=== PATIENT | female | born 1950 | race Hispanic/Latino ===

== ENCOUNTER 2016-12-04 08:05 | Day surgery (SDC) | payer MEDICARE, BC ==
[2016-11-28 08:32] VITALS: BMI 22.2
[2016-12-04] MEDS ORDERED: Lactated Ringer's 1,000 ML IV SCH (08:35)
[2016-12-04] MEDS ORDERED: Propofol 10 mg/ml Inj (20 ML) ONE (08:58)
[2016-12-04 12:17] VITALS: BP 139/79; PULSE 71; RESP 19; TEMP 97.7; O2SAT 95
== END 2016-12-04 12:12 | disposition home or self-care (01) ==
LOC: ENDO 08:05
PROVIDERS: ATTEND Internal Medicine
DX: K92.1 Melena (principal); K29.70 Gastritis, unspecified, without bleeding; K44.9 Diaphragmatic hernia without obstruction or gangrene; K20.8 Other esophagitis; K64.8 Other hemorrhoids; K59.00 Constipation, unspecified
CPT/HCPCS: 43239; 45378; 88305; 88342; J2001; J2405; J2704; J3010; J7040; J7120

== ENCOUNTER 2017-03-05 07:16 | Day surgery (SDC) | payer MEDICARE, BC ==
[2017-02-27 10:36] VITALS: BMI 21.9
[2017-03-05] MEDS ORDERED: Propofol 10 mg/ml Inj (20 ML) ONE (08:28)
[2017-03-05] MEDS ORDERED: Sodium Chloride 0.9% 1,000 ML IV SCH (08:45)
[2017-03-05 08:50] VITALS: RESP 14; TEMP 98
[2017-03-05 08:59] VITALS: PULSE 61
[2017-03-05 09:14] VITALS: BP 146/86; O2SAT 97
== END 2017-03-05 10:17 | disposition home or self-care (01) ==
LOC: ENDO 07:16
PROVIDERS: ATTEND Internal Medicine
DX: K29.70 Gastritis, unspecified, without bleeding (principal); K44.9 Diaphragmatic hernia without obstruction or gangrene
CPT/HCPCS: 43235; J2001; J2704; J7040

== ENCOUNTER 2017-11-01 09:29 | Observation (INO) | payer MEDICARE, BC ==
[2017-11-01 09:45] VITALS: BMI 20.3
--- NOTE | 2017-11-01 09:47 | ED PDOC ---
Arrival/HPI - General Time Seen by Provider: 11/01/17 09:31 Historian: Patient - History of Present Illness Narrative History of Present Illness (Text): 11/01/17 09:40 67 year old female, whose PMH includes COPD and asthma, who presents to the emergency department complaining of shortness of breath and wheezing since 3 days ago. Patient reports being in basement at neighbors basement with 65 cats and believes it might has triggered the worsening of shortness of breath. She associated this symptom with subjective fever, chest tightness, and coughing with mild sputum. Patient notes using both her pump and nebulizer with no significant improvement. Patient denies dizziness, headache, nausea, vomiting, diarrhea, abdominal pain, dysuria, hematuria, or other complaints. PMD: Dr. Maldonado Time/Duration: < week Symptom Onset: Sudden Symptom Course: Worsening Activities at Onset: Rest Context: Home Past Medical History - Provider Review Nursing Documentation Reviewed: Yes - Infectious Disease Hx of Infectious Diseases: None - Tetanus Immunization Tetanus Immunization: Unknown - Cardiac Hx Pacemaker: No - Pulmonary Hx Asthma: Yes Hx Chronic Obstructive Pulmonary Disease (COPD): Yes - Neurological Hx Paralysis: No - Hematological/Oncological Hx Blood Transfusions: Yes (1996) Hx Blood Transfusion Reaction: No - Musculoskeletal/Rheumatological Hx Musculoskeletal Disorders: Yes - Genitourinary/Gynecological Other/Comment: ovarian tumor removed - Psychiatric Hx Emotional Abuse: No Hx Physical Abuse: No Hx Substance Use: Yes (ON SUBOXONE FOR OPIATE DEPENDENCY ) - Surgical History Hx Musculoskeletal Surgery: Yes (bilat hip replaced) - Anesthesia Hx Anesthesia Reactions: No Hx Malignant Hyperthermia: No - Suicidal Assessment Feels Threatened In Home Enviroment: No Family/Social History - Physician Review Nursing Documentation Reviewed: Yes Family/Social History: Unknown Family HX Smoking Status: Current Some Days Smoker Hx Alcohol Use: No Hx Substance Use: Yes (ON SUBOXONE FOR OPIATE DEPENDENCY ) Allergies/Home Meds Allergies/Adverse Reactions: Allergies Penicillins Allergy (Verified 11/01/17 09:43) ANGIOEDEMA HAZELNUTS Allergy (Uncoded 11/01/17 09:43) SWELLING molds Allergy (Uncoded 11/01/17 09:43) ANGIOEDEMA Home Medications: Home Meds Medication Instructions Recorded Confirmed Buprenorphine HCl/Naloxone HCl 1 ann SL BID 11/28/16 11/01/17 [Suboxone 8 mg-2 mg] Vitamin E [Vitamin E 400 Units Cap] 400 iu PO DAILY 11/28/16 11/01/17 Cholecalciferol 400 Intl Units 400 iu PO DAILY 12/04/16 11/01/17 [Vitamin D 400 Intl Units Tab] Gluc/Tam-MSM#1/C/Robe/Cesar/Bor 2 each PO DAILY 12/04/16 11/01/17 [Osteo Bi-Flex Caplet] Multivit-Min/Iron/Folic/Lutein 1 each PO DAILY 12/04/16 11/01/17 [Centrum Silver Women Tablet] Clonazepam [Klonopin] 1 tab PO BID 11/01/17 11/01/17 Quetiapine Fumarate [Seroquel] 50 mg PO BID 11/01/17 11/01/17 Ranitidine HCl [Zantac] 1 tab PO BID 11/01/17 11/01/17 Review of Systems - Review of Systems Constitutional: Fevers. absent: Fatigue ENT: absent: Sore Throat Respiratory: SOB, Cough, Sputum, Wheezing Cardiovascular: Other (chest tightness) Gastrointestinal: absent: Abdominal Pain, Vomiting Genitourinary Female: absent: Dysuria Musculoskeletal: absent: Back Pain Skin: absent: Rash Neurological: absent: Headache, Dizziness Endocrine: absent: Diaphoresis Physical Exam Vital Signs Reviewed: Yes Vital Signs Temp Pulse Pulse Resp BP Pulse Ox 11/01/17 13:03 98.7 F 82 82 17 106/68 11/01/17 11:35 80 16 106/68 94 L 11/01/17 09:59 26 H 11/01/17 09:41 98.3 F 11/01/17 09:36 98.3 F 85 22 101/85 91 L Temperature: Afebrile Blood Pressure: Normal Pulse: Regular Respiratory Rate: Normal Appearance: Positive for: Well-Appearing, Non-Toxic, Comfortable Pain Distress: None Mental Status: Positive for: Alert and Oriented X 3 - Systems Exam Head: Present: Atraumatic, Normocephalic Pupils: Present: PERRL Extroacular Muscles: Present: EOMI Conjunctiva: Present: Normal Mouth: Present: Moist Mucous Membranes Respiratory/Chest: Present: Wheezes (diffused wheezing ), Retracting (+1 retraction ). No: Clear to Auscultation, Good Air Exchange, Accessory Muscle Use, Rales Cardiovascular: Present: Regular Rate and Rhythm, Normal S1, S2. No: Murmurs Abdomen: Present: Normal Bowel Sounds. No: Tenderness, Distention, Peritoneal Signs, Rebound, Guarding Neurological: Present: GCS=15, CN II-XII Intact, Speech Normal Skin: Present: Warm, Dry, Normal Color. No: Rashes Psychiatric: Present: Alert, Oriented x 3, Normal Insight, Normal Concentration Medical Decision Making ED Course and Treatment: 11/01/17 Impression: 67 year old female with diffused wheezing and +1 retraction complaining of shortness of breath and wheezing since 3 days. Differential Diagnosis included but are not limited to: COPD exacerbation r/o PNA Plan: -- EKG -- Chest X-ray -- Labs -- Duoneb and Solumedrol -- Reassess and disposition Progress Notes: EKG: Ordered, reviewed, and independently interpreted the EKG. Rate : 80 BPM Rhythm : NSR Interpretation : No ST-segment elevations or depressions, no T-wave inversions, normal intervals. 11/01/17 10:35 Chest X-ray Impressions: No active disease 11/01/17 11:07 Patient continues to have wheezing and shortness of breathing but is improving. will reassess. 11/01/17 12:06 Patient continues to have symptoms. Discussed case with Dr. Henderson who will place the patient on her service. - Critical Care Critical Care Minutes: 30 minutes - Lab Interpretations Lab Results: 11/01/17 09:40 11/01/17 09:40 Lab Results 11/01/17 09:40: pO2 99 H, VBG pH 7.33, VBG pCO2 56.0, VBG HCO3 29.5 H, VBG Total CO2 31.2 H, VBG O2 Sat (Calc) 98.8 H, VBG Base Excess 2.3 H, VBG Potassium 4.0, Sodium 139.0, Chloride 105.0, Glucose 125 H, Lactate 1.0, FiO2 21.0, Venous Blood Potassium 4.0 11/01/17 09:40: Sodium 142, Chloride 104, Potassium 4.2, Carbon Dioxide 29, Anion Gap 14, BUN 18, Creatinine 0.7, Est GFR ( Amer) > 60, Est GFR (Non- Af Amer) > 60, Random Glucose 116 H, Calcium 9.7, Magnesium 1.8, Lactate Dehydrogenase 453, Total Creatine Kinase 61, Troponin I < 0.01, NT-Pro-B Natriuret Pep 123 11/01/17 09:40: WBC 5.9, RBC 4.61, Hgb 14.9, Hct 43.0, MCV 93.3, MCH 32.3, MCHC 34.7, RDW 13.4, Plt Count 183, MPV 10.0, Gran % 39.4 L, Lymph % (Auto) 41.6 H, Throckmorton % (Auto) 10.4 H, Eos % (Auto) 7.9 H, Baso % (Auto) 0.7, Gran # 2.34, Lymph # (Auto) 2.5, Throckmorton # (Auto) 0.6, Eos # (Auto) 0.5, Baso # (Auto) 0.04 I have reviewed the lab results: Yes - RAD Interpretation Radiology Orders: 11/01/17 09:46 CHEST PORTABLE [RAD] Stat Company Doctor: Radiologist - EKG Interpretation Interpreted by ED Physician: Yes Type: 12 lead EKG - Medication Orders Current Medication Orders: Discontinued Medications Albuterol Sulfate (Albuterol 0.083% Inhal Kallie (2.5 Mg/3 Ml) Ud) 2.5 mg IH STAT STA Stop: 11/01/17 12:06 Last Admin: 11/01/17 12:58 Dose: 2.5 mg Albuterol/Ipratropium (Duoneb 3 Mg/0.5 Mg (3 Ml) Ud) 3 ml IH Q15M SIVAKUMAR Stop: 11/01/17 10:31 Last Admin: 11/01/17 10:17 Dose: 3 ml Methylprednisolone (Solu-Medrol) 125 mg IVP STAT STA Stop: 11/01/17 09:46 Last Admin: 11/01/17 09:52 Dose: 125 mg IVP Administration Document 11/01/17 09:52 [facility] [place] (Rec: 11/01/17 09:52 [facility] [place] [id number]) Charges for Administration # of IVP Administrations 1 Pneumococcal Polyvalent Vaccine (Pneumovax 23 Vaccine) 0.5 ml IM .ONCE ONE Stop: 11/01/17 13:52 - Scribe Statement The provider has reviewed the documentation as recorded by the Marge Aguirre Provider Scribe Attestation: All medical record entries made by the Scribe were at my direction and personally dictated by me. I have reviewed the chart and agree that the record accurately reflects my personal performance of the history, physical exam, medical decision making, and the department course for this patient. I have also personally directed, reviewed, and agree with the discharge instructions and disposition. Disposition/Present on Arrival - Present on Arrival Any Indicators Present on Arrival: No History of DVT/PE: No History of Uncontrolled Diabetes: No Urinary Catheter: No History Surgical Site Infection Following: None - Disposition Have Diagnosis and Disposition been Completed?: Yes Diagnosis: COPD (chronic obstructive pulmonary disease) Disposition: HOSPITALIZED Disposition Time: 12:06 Patient Plan: Admission Condition: FAIR
[2017-11-01] MEDS: Albuterol-Ipratrop 3 mg / 0.5 (3 ml) UD IH SCH ×6 (09:52→23:41)
[2017-11-01 09:58] LABS: BASO # 0.04 K/mm3 (0.0-2.0); BASO % 0.7 % (0.0-3.0); EOS # 0.5 (0.0-0.7); EOS % 7.9 % (1.5-5.0); GRAN # 2.34 (1.4-6.5); GRAN % 39.4 % (50.0-68.0); HEMOGLOBIN 14.9 g/dL (12.0-16.0); LYMPH # 2.5 (1.2-3.4); LYMPH % 41.6 % (22.0-35.0); MEAN CELL VOLUME 93.3 fl (80.0-105.0); MEAN CORPUSCULAR HEMOGLOBIN 32.3 pg (25.0-35.0); MEAN CORPUSCULAR HGB CONC 34.7 g/dl (31.0-37.0); MONO # 0.6 (0.1-0.6); MONO % 10.4 % (1.0-6.0); RBC 4.61 10^6/uL (3.5-6.1); RED CELL DISTRIBUTION WIDTH 13.4 % (11.5-14.5); WHITE BLOOD COUNT 5.9 10^3/ul (4.5-11.0)
[2017-11-01 10:04] LABS: VENOUS BLOOD GAS BASE EXCESS 2.3 mmol/L (0.0-2.0); VENOUS BLOOD GAS PO2 99 mm/Hg (30-55); VENOUS BLOOD PH 7.33 (7.32-7.43)
[2017-11-01 10:08] LABS: BLOOD UREA NITROGEN 18 mg/dL (7-21); CALCIUM 9.7 mg/dL (8.4-10.5); GFR AFRICAN-AMERICAN > 60; GFR NON-AFRICAN AMERICAN > 60
[2017-11-01 10:20] LABS: B-TYPE NATRIURETIC PEPTIDE 123 pg/mL (0-450); TROPONIN I < 0.01 ng/mL
--- NOTE | 2017-11-01 10:30 | RAD ---
Date of service: 11/01/2017 HISTORY: copd r/o pna COMPARISON: No prior. FINDINGS: LUNGS: No active pulmonary disease. PLEURA: No significant pleural effusion identified, no pneumothorax apparent. CARDIOVASCULAR: Normal. OSSEOUS STRUCTURES: No significant abnormalities. VISUALIZED UPPER ABDOMEN: Normal. OTHER FINDINGS: None. IMPRESSION: No active disease.
[2017-11-01] MEDS ORDERED: Albuterol 0.083% Inhal Sol (2.5 mg/3 mL) UD IH STA (12:05)
[2017-11-01] MEDS ORDERED: Pneumococcal 23-Valent Vaccine IM ONE (13:51)
[2017-11-01] MEDS ORDERED: Albuterol-Ipratrop 3 mg / 0.5 (3 ml) UD IH PRN (14:07)
[2017-11-01 14:08] VITALS: RESP 18
--- NOTE | 2017-11-01 15:27 | CP.PCM.HP ---
<Ruperto Sadler - Last Filed: 11/01/17 15:19> History of Present Illness - History of Present Illness History of Present Illness: Ruperto SadlerDO PGY-1, [employer] History and Physical 67 y o female PMhx COPD/asthma, former smoker, b/l hip replacement, opioid dependence on suboxone, presents to ED with worsening shortness of breath x 3 days. Pt states she went downstairs into basement of her landlord who has 65 cats. States that the room smelled like urine, started walking back up the stairs, got winded, and states her breathing has not been the same since. States her last hospitalization for COPD was many years ago, states she is not on home oxygen, and has never been intubated in the past. Denies sick contacts or recent travel. States she takes albuterol as needed once every 2 weeks typically for her COPD, but states that she has had to use the medication more frequently over the past several days. Also admits to productive cough with clear/yellow sputum, tearing eyes, and nasal congestion, but denies sore throat or ear pain. Denies fever, chills, chest pain, n/v/d/c, abd pain, urinary complaints, or other symptoms. Pt states she has also had decreased appetite for the past several days. PMhx: COPD/asthma, opioid dependence, erosive esophagitis (last EGD in Nov 2016 , colonoscopy wnl in Feb 2018) PSurgHx: removal of ovarian tumor, b/l hip replacement (1996, 2001) Allergies: Penicillin, mold, hazelnuts (pt gets angioedema with all 3 allergens) Meds: Zantac bid, Seroquel 50 mg bid (as needed when pt has insomnia), MVT, Osteo Bi-Flex capsule, Vit D 400 U daily, Clonazepam 1 mg bid, Suboxone 8 mg-2 mg Fam hx: reviewed and not pertinent Soc Hx: former smoker 1 ppd (quit 2 y ago), former opioid dependence due to b/l hip pain (on suboxone), denies alcohol, IVDA, or other illegal drug use 12-point ROS otherwise neg except for HPI PMD: Dr. Friend Cardio: Dr. Garcia Psych: Dr. Patricia Chase Present on Admission - Present on Admission Any Indicators Present on Admission: No Review of Systems - Constitutional Constitutional: As Per HPI - Cardiovascular Cardiovascular: absent: As Per HPI, Acrocyanosis, Chest Pain, Chest Pain at Rest , Chest Pain with Activity, Claudication, Diaphoresis, Dyspnea, Dyspnea on Exertion, Edema, Irregular Heart Rhythm, Pain Radiating to Arm/Neck/Jaw, Leg Edema, Leg Ulcers, Lightheadedness, Orthopnea, Palpitations, Paroxysmal Nocturnal Dyspnea, Pedal Edema, Radiating Pain, Rapid Heart Rate, Slow Heart Rate, Syncope, Other - Respiratory Respiratory: As Per HPI - Gastrointestinal Gastrointestinal: absent: As Per HPI, Abdominal Pain, Belching, Bloating, Change in Bowel Habits, Change in Stool Character, Coffee Ground Emesis, Constipation, Cramping, Diarrhea, Dyspepsia, Dysphagia, Early Satiety, Excessive Flatus, Fecal Incontinence, Heartburn, Hematemesis, Hematochezia, Loose Stools, Melena, Nausea, Odynophagia, Temesmus, Vomiting, Other - Musculoskeletal Musculoskeletal: absent: As Per HPI, Abnormal Gait, Arthralgias, Atrophy, Back Pain, Deformity, Joint Swelling, Limited Range of Motion, Loss of Height, Muscle Cramps, Muscle Weakness, Myalgias, Neck Pain, Numbness, Radiating Pain into Limb, Stiffness, Tingling, Other Past Patient History - Infectious Disease Hx of Infectious Diseases: None - Tetanus Immunizations Tetanus Immunization: Unknown - Past Social History Smoking Status: Current Some Days Smoker - CARDIAC Hx Pacemaker: No - PULMONARY Hx Asthma: Yes Hx Chronic Obstructive Pulmonary Disease (COPD): Yes - NEUROLOGICAL Hx Paralysis: No - HEENT Hx HEENT Problems: Yes (eyeglassees) - RENAL Hx Chronic Kidney Disease: No - ENDOCRINE/METABOLIC Hx Endocrine Disorders: No - HEMATOLOGICAL/ONCOLOGICAL Hx Blood Transfusions: Yes (1996) Hx Blood Transfusion Reaction: No - INTEGUMENTARY Hx Dermatological Problems: Yes Other/Comment: left foot toes 2 3 4 5 hammertoes, thick dry nails, slight red dry skin to left heel, bunyon left foot, scratchmarks from "cats" to lle, rle small scratchmarks from cats, thick toenails, dry cark skin to right heel, scratch bueno knees, swelling to knees left more than right, multiple moles to back - MUSCULOSKELETAL/RHEUMATOLOGICAL Hx Musculoskeletal Disorders: Yes - GASTROINTESTINAL Hx Gastrointestinal Disorders: Yes (esophagitis erosions) - GENITOURINARY/GYNECOLOGICAL Other/Comment: ovarian tumor removed - PSYCHIATRIC Hx Emotional Abuse: No Hx Physical Abuse: No Hx Substance Use: Yes (ON SUBOXONE FOR OPIATE DEPENDENCY ) - SURGICAL HISTORY Hx Musculoskeletal Surgery: Yes (bilat hip replaced) - ANESTHESIA Hx Anesthesia Reactions: No Hx Malignant Hyperthermia: No Meds Allergies/Adverse Reactions: Allergies Allergy/AdvReac Type Severity Reaction Status Date / Time Penicillins Allergy ANGIOEDEMA Verified 11/01/17 09:43 HAZELNUTS Allergy SWELLING Uncoded 11/01/17 09:43 molds Allergy ANGIOEDEMA Uncoded 11/01/17 09:43 Physical Exam - Constitutional Appears: Well, Non-toxic, No Acute Distress - Head Exam Head Exam: ATRAUMATIC, NORMAL INSPECTION, NORMOCEPHALIC - Eye Exam Eye Exam: EOMI, Normal appearance, PERRL - ENT Exam ENT Exam: Mucous Membranes Moist, Normal Oropharynx - Neck Exam Neck exam: Positive for: Full Rom, Normal Inspection - Respiratory Exam Respiratory Exam: Rhonchi, Wheezes Additional comments: Diffuse wheezes/rhonchi auscultated in all lung hernandez - Cardiovascular Exam Cardiovascular Exam: REGULAR RHYTHM Additional comments: Holosystolic murmur auscultated - GI/Abdominal Exam GI & Abdominal Exam: Normal Bowel Sounds, Soft - Extremities Exam Extremities exam: Positive for: full ROM, normal inspection, pedal pulses present - Neurological Exam Neurological exam: Alert, CN II-XII Intact, Normal Gait, Oriented x3, Reflexes Normal - Psychiatric Exam Psychiatric exam: Normal Affect, Normal Mood - Skin Skin Exam: Dry, Intact, Normal Color, Warm Results - Vital Signs Recent Vital Signs: Last Vital Signs Temp 98.7 F 11/01/17 13:03 Pulse 82 11/01/17 14:07 Resp 18 11/01/17 14:07 BP 105/69 11/01/17 14:07 Pulse Ox 95 11/01/17 14:07 - Labs Result Diagrams: 11/01/17 09:40 11/01/17 09:40 Assessment & Plan - Assessment and Plan (Free Text) Assessment: 67 y o female PMhx COPD/asthma, former smoker, b/l hip replacement, opioid dependence on suboxone, presents to ED with worsening shortness of breath x 3 days. Pt being treated for COPD exacerbation. Plan: COPD Exacerbation -S/p solumedrol and duonebs x3 in ED with improvement -CXR: neg for consolidation -Duonebs q 4, adjust as needed -Prednisone 40 mg daily (to be started tomorrow) -Levaquin 750 mg IVPB daily -Continue to trend O2 sats, pt at 95% s/p tx in ED -F/u labs Hx opioid dependence on suboxone 20 mg methadone stat, will re-evaluate as needed Hx unspecified mood disorder C/w home meds Klonipin, Seroquel Pt seen, examined with, and plan d/w Dr. Graf, attending. Ruperto Sadler DO PGY-1, [employer] Pager #[phone] <Radha Graf - Last Filed: 11/02/17 10:52> Results - Vital Signs Recent Vital Signs: Last Vital Signs Temp 98.3 F 11/02/17 06:00 Pulse 58 L 11/02/17 06:00 Resp 18 11/02/17 06:00 BP 124/78 11/02/17 06:00 Pulse Ox 96 11/02/17 06:00 - Labs Result Diagrams: 11/02/17 06:30 11/02/17 06:30 Labs: Laboratory Results - last 24 hr 11/02/17 11/02/17 06:30 06:30 WBC 9.1 D RBC 4.08 Hgb 13.2 Hct 37.8 MCV 92.6 MCH 32.4 MCHC 34.9 RDW 13.2 Plt Count 170 MPV 10.1 Gran % 75.7 H Lymph % (Auto) 13.1 L Starr % (Auto) 10.8 H Eos % (Auto) 0.3 L Baso % (Auto) 0.1 Gran # 6.84 H Lymph # (Auto) 1.2 Starr # (Auto) 1.0 H Eos # (Auto) 0.0 Baso # (Auto) 0.01 Sodium 138 Potassium 4.5 Chloride 104 Carbon Dioxide 27 Anion Gap 12 BUN 24 H Creatinine 0.7 Est GFR ( Amer) > 60 Est GFR (Non-Af Amer) > 60 Random Glucose 107 Calcium 9.7 Total Bilirubin 0.6 AST 30 ALT 29 Alkaline Phosphatase 69 Total Protein 6.7 Albumin 3.7 Globulin 3.0 Albumin/Globulin Ratio 1.2 Attending/Attestation - Attestation I have personally seen and examined this patient.: Yes I have fully participated in the care of the patient.: Yes I have reviewed all pertinent clinical information: Yes Notes (Text): 11/02/17 10:48 Medical record note made by the resident after discussion with my direction and input after the patient was personally seen and examined by me. I have reviewed the chart and agree that the record accurately reflects by personal performance of the history, physical exam, data review, and medical decision-making, in the course for the patient. I have also personally directed the plan of care. 67 yrs old female with PMH of COPD, Aortic stenosis, drug abuse on Suboxone iis admitted with COPD exacerbation. Continue Neb/Steroid and antibiotics. DVT prophylaxis with lovenox. Management plan was discussed in detail with patient. Education was provided.
[2017-11-01] MEDS: levoFLOXacin 750 mg in D5W 750 MG/150 ML BAG IVPB SCH (16:18)
[2017-11-01] MEDS: Enoxaparin 40 mg Syringe SC SCH (16:18)
--- NOTE | 2017-11-01 17:34 | CARD ---
APPROVED REPORT Date of service: 11/01/2017 EKG Measurement Heart [id number] <Conclusion> Poor data quality, interpretation may be adversely affected Sinus rhythm with fusion complexes Minimal voltage criteria for LVH, may be normal variant Borderline ECG
[2017-11-02] MEDS: Albuterol-Ipratrop 3 mg / 0.5 (3 ml) UD IH SCH ×3 (03:34→11:08)
[2017-11-02] MEDS ORDERED: Pantoprazole 40 mg EC Tab PO SCH (06:00)
[2017-11-02 06:46] LABS: BASO # 0.01 K/mm3 (0.0-2.0); BASO % 0.1 % (0.0-3.0); EOS % 0.3 % (1.5-5.0); GRAN # 6.84 (1.4-6.5); GRAN % 75.7 % (50.0-68.0); HEMOGLOBIN 13.2 g/dL (12.0-16.0); LYMPH # 1.2 (1.2-3.4); LYMPH % 13.1 % (22.0-35.0); MEAN CELL VOLUME 92.6 fl (80.0-105.0); MEAN CORPUSCULAR HEMOGLOBIN 32.4 pg (25.0-35.0); MEAN CORPUSCULAR HGB CONC 34.9 g/dl (31.0-37.0); MEAN PLATELET VOLUME 10.1 fl (7.0-11.0); MONO % 10.8 % (1.0-6.0); RBC 4.08 10^6/uL (3.5-6.1); RED CELL DISTRIBUTION WIDTH 13.2 % (11.5-14.5); WHITE BLOOD COUNT 9.1 10^3/ul (4.5-11.0)
[2017-11-02 07:25] LABS: ALB/GLOB RATIO 1.2 (1.1-1.8); ALBUMIN 3.7 g/dL (3.0-4.8); ALT/SGPT 29 U/L (7-56); AST/SGOT 30 U/L (14-36); BLOOD UREA NITROGEN 24 mg/dL (7-21); CALCIUM 9.7 mg/dL (8.4-10.5); GFR AFRICAN-AMERICAN > 60; GFR NON-AFRICAN AMERICAN > 60
[2017-11-02 09:04] VITALS: BP 124/78; PULSE 58; TEMP 98.3; O2SAT 96
[2017-11-02] MEDS: Enoxaparin 40 mg Syringe SC SCH (09:21)
[2017-11-02] MEDS: levoFLOXacin 750 mg in D5W 750 MG/150 ML BAG IVPB SCH (09:21)
--- NOTE | 2017-11-02 10:34 | CP.PCM.DIS ---
<Dontrell Freemanant - Last Filed: 11/02/17 10:28> Provider - Provider Date of Admission: 11/01/17 12:06 Attending physician: Faby Henderson MD Primary care physician: Irene Roth MD Time Spent in preparation of Discharge (in minutes): 40 Diagnosis - Discharge Diagnosis (1) COPD (chronic obstructive pulmonary disease) Status: Acute Priority: High (2) Opioid dependence Status: Chronic Priority: Medium (3) Mood disorder Status: Chronic Priority: Medium Hospital Course - Lab Results Lab Results: Most Recent Lab Values WBC 9.1 10^3/ul (4.5-11.0) D 11/02/17 06:30 RBC 4.08 10^6/uL (3.5-6.1) 11/02/17 06:30 Hgb 13.2 g/dL (12.0-16.0) 11/02/17 06:30 Hct 37.8 % (36.0-48.0) 11/02/17 06:30 MCV 92.6 fl (80.0-105.0) 11/02/17 06:30 MCH 32.4 pg (25.0-35.0) 11/02/17 06:30 MCHC 34.9 g/dl (31.0-37.0) 11/02/17 06:30 RDW 13.2 % (11.5-14.5) 11/02/17 06:30 Plt Count 170 10^3/uL (120.0-450.0) 11/02/17 06:30 MPV 10.1 fl (7.0-11.0) 11/02/17 06:30 Gran % 75.7 % (50.0-68.0) H 11/02/17 06:30 Lymph % (Auto) 13.1 % (22.0-35.0) L 11/02/17 06:30 Leon % (Auto) 10.8 % (1.0-6.0) H 11/02/17 06:30 Eos % (Auto) 0.3 % (1.5-5.0) L 11/02/17 06:30 Baso % (Auto) 0.1 % (0.0-3.0) 11/02/17 06:30 Gran # 6.84 (1.4-6.5) H 11/02/17 06:30 Lymph # (Auto) 1.2 (1.2-3.4) 11/02/17 06:30 Leon # (Auto) 1.0 (0.1-0.6) H 11/02/17 06:30 Eos # (Auto) 0.0 (0.0-0.7) 11/02/17 06:30 Baso # (Auto) 0.01 K/mm3 (0.0-2.0) 11/02/17 06:30 pO2 99 mm/Hg (30-55) H 11/01/17 09:40 VBG pH 7.33 (7.32-7.43) 11/01/17 09:40 VBG pCO2 56.0 (40-60) 11/01/17 09:40 VBG HCO3 29.5 mmol/l (21-28) H 11/01/17 09:40 VBG Total CO2 31.2 mmol.L (22-28) H 11/01/17 09:40 VBG O2 Sat (Calc) 98.8 % (40-65) H 11/01/17 09:40 VBG Base Excess 2.3 mmol/L (0.0-2.0) H 11/01/17 09:40 VBG Potassium 4.0 mmol/L (3.6-5.2) 11/01/17 09:40 Sodium 139.0 mmol/L (132-148) 11/01/17 09:40 Chloride 105.0 mmol/L (98-107) 11/01/17 09:40 Glucose 125 mg/dl (65-105) H 11/01/17 09:40 Lactate 1.0 mmol/L (0.7-2.1) 11/01/17 09:40 FiO2 21.0 % 11/01/17 09:40 Sodium 138 mmol/L (132-148) 11/02/17 06:30 Potassium 4.5 mmol/L (3.6-5.0) 11/02/17 06:30 Chloride 104 mmol/L (98-107) 11/02/17 06:30 Carbon Dioxide 27 mmol/L (21-33) 11/02/17 06:30 Anion Gap 12 (10-20) 11/02/17 06:30 BUN 24 mg/dL (7-21) H 11/02/17 06:30 Creatinine 0.7 mg/dl (0.7-1.2) 11/02/17 06:30 Est GFR ( Amer) > 60 11/02/17 06:30 Est GFR (Non-Af Amer) > 60 11/02/17 06:30 Random Glucose 107 mg/dL (70-110) 11/02/17 06:30 Calcium 9.7 mg/dL (8.4-10.5) 11/02/17 06:30 Magnesium 1.8 mg/dL (1.7-2.2) 11/01/17 09:40 Total Bilirubin 0.6 mg/dL (0.2-1.3) 11/02/17 06:30 AST 30 U/L (14-36) 11/02/17 06:30 ALT 29 U/L (7-56) 11/02/17 06:30 Alkaline Phosphatase 69 U/L (38-126) 11/02/17 06:30 Lactate Dehydrogenase 453 U/L (333-699) 11/01/17 09:40 Total Creatine Kinase 61 U/L (35-230) 11/01/17 09:40 Troponin I < 0.01 ng/mL 11/01/17 09:40 NT-Pro-B Natriuret Pep 123 pg/mL (0-450) 11/01/17 09:40 Total Protein 6.7 g/dL (5.8-8.3) 11/02/17 06:30 Albumin 3.7 g/dL (3.0-4.8) 11/02/17 06:30 Globulin 3.0 gm/dL 11/02/17 06:30 Albumin/Globulin Ratio 1.2 (1.1-1.8) 11/02/17 06:30 Venous Blood Potassium 4.0 mmol/L (3.6-5.2) 11/01/17 09:40 - Hospital Course Hospital Course: Ben Freeman DO - PGY1 [facility] - Hospital Discharge Note 67 F w/ PMH COPD/Asthma, Former smoker, BL hip replacement, opiod dependance on suboxone, presents to Ed w/ worsening SOB x3 days. Last COPD hospitalization >1 year ago, not on home O2, never intubated. typically uses albuterol nebulized Q2 weeks for COPD sx however days prior to admission pt has had an increase in frequency of use. ROS on admission was only significant for shortness of breath , wheezing, and decreased appetite. Denied any other complaint at time of admission. In the ED, CXR performed was negative for any active airway disease; EKG was read as sinus rhythm w/ fusion complexes, and minimal voltage criteria for LVH. Pt. started on Duonebs and solumedrol. Subsequently, she was admitted to inpatient for COPD exacerbation. Pt. was treated w/ Duoneb Q4, Levofloxacin 750 , and prednisone. This morning, she was seen at bedside. Patient has decreased complaints of SOB and wheezing; only complaining of poor night sleep due to home seroquel not being restarted. Otherwise, the patient appears to be tolerating well. The following discharge instructions were verbalized to the patient, and she agrees with the discharge plan: 1. Follow up with your primary care doctor; Dr. Roth within 10 days. 2. Please continue taking your nebulized albuterol at home every 4 hours as needed; If you are not home you may use your albuterol rescue inhaler. 3. Start taking prednisone daily as prescribed 4. Start taking levaquin daily as prescribed 5. Please return to nearest emergency department should symptoms worsen Patient is stable for discharge to home at this time. - Date & Time of H&P Date of H&P: 11/01/17 Time of H&P: 15:19 Discharge Exam - Head Exam Head Exam: ATRAUMATIC, NORMAL INSPECTION, NORMOCEPHALIC - Eye Exam Eye Exam: EOMI, Normal appearance, PERRL. absent: Scleral icterus - ENT Exam ENT Exam: Mucous Membranes Moist, Normal Exam, Normal Oropharynx - Neck Exam Neck exam: Full Rom, Normal Inspection - Respiratory Exam Respiratory Exam: Rhonchi, Wheezes - Cardiovascular Exam Cardiovascular Exam: REGULAR RHYTHM, +S1, Systolic Murmur - GI/Abdominal Exam GI & Abdominal Exam: Normal Bowel Sounds, Soft. absent: Tenderness - Extremities Exam Extremities exam: pedal pulses present - Neurological Exam Neurological exam: Alert, CN II-XII Intact, Oriented x3 - Psychiatric Exam Psychiatric exam: Normal Affect, Normal Mood - Skin Skin Exam: Dry, Intact, Warm Discharge Plan - Discharge Medications Prescriptions: Albuterol HFA [Ventolin HFA 90 mcg/actuation (8 g)] 2 puff IH [id number] PRN #1 puff PRN Reason: Shortness Of Breath Levofloxacin [Levaquin] 500 mg PO DAILY #5 tablet predniSONE [predniSONE Tab] 40 mg PO DAILY 4 Days tab - Follow Up Plan Condition: FAIR Disposition: HOME/ ROUTINE Instructions: Chronic Obstructive Pulmonary Disease (COPD), Including Emphysema , Inhalers, Steroid Medicines, Medicines for Chronic Obstructive Pulmonary Disease (COPD), Polysubstance Abuse (DC) Additional Instructions: 1. Follow up with your primary care doctor; Dr. Roth within 10 days. 2. Please continue taking your nebulized albuterol at home every 4 hours as needed; If you are not home you may use your albuterol rescue inhaler. 3. Start taking prednisone daily as prescribed 4. Start taking levaquin daily as prescribed 5. Please return to nearest emergency department should symptoms worsen Referrals: Irene Dobbs MD [Primary Care Provider] - <Radha Graf - Last Filed: 11/03/17 13:43> Provider - Provider Date of Admission: 11/01/17 12:06 Attending physician: Faby Henderson MD Primary care physician: Irene Roth MD Hospital Course - Lab Results Lab Results: Most Recent Lab Values WBC 9.1 10^3/ul (4.5-11.0) D 11/02/17 06:30 RBC 4.08 10^6/uL (3.5-6.1) 11/02/17 06:30 Hgb 13.2 g/dL (12.0-16.0) 11/02/17 06:30 Hct 37.8 % (36.0-48.0) 11/02/17 06:30 MCV 92.6 fl (80.0-105.0) 11/02/17 06:30 MCH 32.4 pg (25.0-35.0) 11/02/17 06:30 MCHC 34.9 g/dl (31.0-37.0) 11/02/17 06:30 RDW 13.2 % (11.5-14.5) 11/02/17 06:30 Plt Count 170 10^3/uL (120.0-450.0) 11/02/17 06:30 MPV 10.1 fl (7.0-11.0) 11/02/17 06:30 Gran % 75.7 % (50.0-68.0) H 11/02/17 06:30 Lymph % (Auto) 13.1 % (22.0-35.0) L 11/02/17 06:30 Leon % (Auto) 10.8 % (1.0-6.0) H 11/02/17 06:30 Eos % (Auto) 0.3 % (1.5-5.0) L 11/02/17 06:30 Baso % (Auto) 0.1 % (0.0-3.0) 11/02/17 06:30 Gran # 6.84 (1.4-6.5) H 11/02/17 06:30 Lymph # (Auto) 1.2 (1.2-3.4) 11/02/17 06:30 Leon # (Auto) 1.0 (0.1-0.6) H 11/02/17 06:30 Eos # (Auto) 0.0 (0.0-0.7) 11/02/17 06:30 Baso # (Auto) 0.01 K/mm3 (0.0-2.0) 11/02/17 06:30 pO2 99 mm/Hg (30-55) H 11/01/17 09:40 VBG pH 7.33 (7.32-7.43) 11/01/17 09:40 VBG pCO2 56.0 (40-60) 11/01/17 09:40 VBG HCO3 29.5 mmol/l (21-28) H 11/01/17 09:40 VBG Total CO2 31.2 mmol.L (22-28) H 11/01/17 09:40 VBG O2 Sat (Calc) 98.8 % (40-65) H 11/01/17 09:40 VBG Base Excess 2.3 mmol/L (0.0-2.0) H 11/01/17 09:40 VBG Potassium 4.0 mmol/L (3.6-5.2) 11/01/17 09:40 Sodium 139.0 mmol/L (132-148) 11/01/17 09:40 Chloride 105.0 mmol/L (98-107) 11/01/17 09:40 Glucose 125 mg/dl (65-105) H 11/01/17 09:40 Lactate 1.0 mmol/L (0.7-2.1) 11/01/17 09:40 FiO2 21.0 % 11/01/17 09:40 Sodium 138 mmol/L (132-148) 11/02/17 06:30 Potassium 4.5 mmol/L (3.6-5.0) 11/02/17 06:30 Chloride 104 mmol/L (98-107) 11/02/17 06:30 Carbon Dioxide 27 mmol/L (21-33) 11/02/17 06:30 Anion Gap 12 (10-20) 11/02/17 06:30 BUN 24 mg/dL (7-21) H 11/02/17 06:30 Creatinine 0.7 mg/dl (0.7-1.2) 11/02/17 06:30 Est GFR ( Amer) > 60 11/02/17 06:30 Est GFR (Non-Af Amer) > 60 11/02/17 06:30 Random Glucose 107 mg/dL (70-110) 11/02/17 06:30 Calcium 9.7 mg/dL (8.4-10.5) 11/02/17 06:30 Magnesium 1.8 mg/dL (1.7-2.2) 11/01/17 09:40 Total Bilirubin 0.6 mg/dL (0.2-1.3) 11/02/17 06:30 AST 30 U/L (14-36) 11/02/17 06:30 ALT 29 U/L (7-56) 11/02/17 06:30 Alkaline Phosphatase 69 U/L (38-126) 11/02/17 06:30 Lactate Dehydrogenase 453 U/L (333-699) 11/01/17 09:40 Total Creatine Kinase 61 U/L (35-230) 11/01/17 09:40 Troponin I < 0.01 ng/mL 11/01/17 09:40 NT-Pro-B Natriuret Pep 123 pg/mL (0-450) 11/01/17 09:40 Total Protein 6.7 g/dL (5.8-8.3) 11/02/17 06:30 Albumin 3.7 g/dL (3.0-4.8) 11/02/17 06:30 Globulin 3.0 gm/dL 11/02/17 06:30 Albumin/Globulin Ratio 1.2 (1.1-1.8) 11/02/17 06:30 Venous Blood Potassium 4.0 mmol/L (3.6-5.2) 11/01/17 09:40 Attending/Attestation - Attestation I have personally seen and examined this patient.: Yes I have fully participated in the care of the patient.: Yes I have reviewed all pertinent clinical information, including history, physical exam and plan: Yes Notes (Text): 11/03/17 13:42 Medical record note made by the resident after discussion with my direction and input after the patient was personally seen and examined by me. I have reviewed the chart and agree that the record accurately reflects by personal performance of the history, physical exam, data review, and medical decision-making, in the course for the patient. I have also personally directed the plan of care. 67 yrs old female with PMH of COPD, Aortic stenosis, drug abuse on Suboxone was admitted with COPD exacerbation. Improved Neb/Steroid and antibiotics. Patient is on room air, wheezing and dyspnea has improved. Patient will be discharged home and will follow up with PCP. Management plan was discussed in detail with patient. Education was provided.
== END 2017-11-02 15:37 | disposition home or self-care (01) ==
LOC: ED 09:29 → ERH 12:06 → 5RNO 14:23
PROVIDERS: ADMIT Internal Medicine; ATTEND Internal Medicine
DX: J44.1 Chronic obstructive pulmonary disease with (acute) exacerbation (principal); Z87.891 Personal history of nicotine dependence; Z96.643 Presence of artificial hip joint, bilateral; F39 Unspecified mood [affective] disorder; F11.20 Opioid dependence, uncomplicated
CPT/HCPCS: 36415; 71045; 80048; 80053; 82550; 82803; 83615; 83735; 83880; 84484; 85025; 87040; 93005; 94640; 94760; 96374; 99285; G0378; J1650; J2930